=== PATIENT | female | born 1960 | race Caucasian/White ===

== ENCOUNTER 2023-07-16 20:47 | Emergency (ER) | payer BC ==
[~2023-07-16] VITALS: Ht 165.1 cm; Wt 122.7 kg
[2023-07-16] MEDS ORDERED: AMOX-117 PO (22:53)
[2023-07-17] MEDS: amox tr/potassium clavulanate 875/125mg TAB PO ONE (01:03)
[2023-07-17] MEDS: acetaminophen 325mg tablet PO ONE (01:04)
[2023-07-17] MEDS: ibuprofen tablet 400 MG TABLET PO ONE (01:04)
[2023-07-17] MEDS: TETanus/Pertussis (Acell)/Diphther VAC/PF (Tdap-Adult) 0.5ml syringe IMVAC ONE (01:06)
[2023-07-17 01:33] VITALS: BP 115/61; PULSE 77; RESP 16; TEMP 98.4; O2SAT 99
== END 2023-07-17 01:35 | disposition home or self-care (01) ==
LOC: ER 20:48
DX: S61.451A Open bite of right hand, initial encounter (principal); Z91.041 Radiographic dye allergy status; Z79.899 Other long term (current) drug therapy; W54.0XXA Bitten by dog, initial encounter; Y93.89 Activity, other specified; Y92.89 Other specified places as the place of occurrence of the external cause; Y99.8 Other external cause status
CPT/HCPCS: 73130; 90471; 90715; 99283; 99284